=== PATIENT | female | born 1980 | race Caucasian/White ===

== ENCOUNTER 2017-06-03 10:49 | Emergency (ER) | payer MEDICAID | END 2017-06-03 12:57 | disposition home or self-care (01) | LOC: D.ER 10:49 | DX: M54.5 Low back pain (principal); S39.012A Strain of muscle, fascia and tendon of lower back, initial encounter; X58.XXXA Exposure to other specified factors, initial encounter; Y93.89 Activity, other specified; Y92.019 Unspecified place in single-family (private) house as the place of occurrence of the external cause; M62.838 Other muscle spasm ==

== ENCOUNTER 2017-07-13 14:04 | Emergency (ER) | payer MEDICAID ==
[2017-07-13 15:59] LABS: BASOPHILS 0.2 % (0-2); EOSINOPHILS 1.9 % (0-7); HEMATOCRIT 46.6 % (36.0-48.0); HEMOGLOBIN 15.8 g/dL (12-16); IMMATURE GRANULOCYTES 0.3 % (0-5); LYMPHOCYTES 29.4 % (15-50); MCH 31.4 pg (26.0-34.0); MCHC 33.9 g/dL (31.0-37.0); MCV 92.6 fL (80.0-100.0); MEAN PLATELET VOLUME 10.1 fL (7.4-10.4); MONOCYTES 4.1 % (2-11); NEUTROPHILS 64.1 % (40-80); PLATELET COUNT 350 10x3/uL (130-400); RBC 5.03 10x6/uL (4.00-5.40); RDW 12.1 % (11.5-14.5); WBC 9.8 10x3/uL (4.8-10.8)
[2017-07-13 16:04] LABS: APPEARANCE CLEAR (CLEAR); BILIRUBIN NEGATIVE (NEGATIVE); COLOR YELLOW (YELLOW); GLUCOSE NEGATIVE (NEGATIVE); KETONE NEGATIVE (NEGATIVE); NITRITE NEGATIVE (NEGATIVE); PROTEIN NEGATIVE (NEGATIVE); UROBILINOGEN NORMAL (NORMAL)
[2017-07-13 16:22] LABS: ALBUMIN 4.5 g/dL (3.4-5.0); ALKALINE PHOSPHATASE 100 U/L (46-116); ALT (SGPT) 35 U/L (10-68); CALC OSMOLALITY 279 mosm/kg (275-300); CALCIUM 9.1 mg/dL (8.5-10.1); CARBON DIOXIDE 27.1 mmol/L (21.0-32.0); CHLORIDE - SERUM 102 mmol/L (98-107); CREATININE - SERUM 0.7 mg/dL (0.6-1.3); GLUCOSE 99 mg/dL (74-106); POTASSIUM - SERUM 3.4 mmol/L (3.5-5.1); PROTEIN - SERUM 8.6 g/dL (6.4-8.2); SODIUM 140 mmol/L (136-145); UREA NITROGEN 14 mg/dL (7-18); eGFR NON AFRICAN AMERICAN > 90 mL/min (90-120)
[2017-07-13 16:23] LABS: C-REACTIVE PROTEIN 0.2 mg/dL (0.0-0.9); CREATINE KINASE 64 UL (21-215); MAGNESIUM - SERUM 2.4 mg/dL (1.8-2.4)
== END 2017-07-13 17:28 | disposition home or self-care (01) ==
LOC: D.ER 14:04
PROVIDERS: Family Medicine
DX: R42 Dizziness and giddiness (principal); R53.1 Weakness; E87.6 Hypokalemia; M54.9 Dorsalgia, unspecified

== ENCOUNTER 2017-09-21 08:06 | Emergency (ER) | payer MEDICAID ==
[2017-09-21 08:41] LABS: HCG URINE NEGATIVE (NEGATIVE)
[2017-09-21 08:44] LABS: APPEARANCE CLEAR (CLEAR); BILIRUBIN NEGATIVE (NEGATIVE); COLOR YELLOW (YELLOW); GLUCOSE NEGATIVE (NEGATIVE); KETONE NEGATIVE (NEGATIVE); NITRITE NEGATIVE (NEGATIVE); PROTEIN NEGATIVE (NEGATIVE); UROBILINOGEN NORMAL (NORMAL)
[2017-09-21 08:46] LABS: BASOPHILS 0.3 % (0-2); EOSINOPHILS 3.1 % (0-7); HEMATOCRIT 43.4 % (36.0-48.0); IMMATURE GRANULOCYTES 0.2 % (0-5); LYMPHOCYTES 20.4 % (15-50); MCH 31.4 pg (26.0-34.0); MCHC 34.6 g/dL (31.0-37.0); MEAN PLATELET VOLUME 9.6 fL (7.4-10.4); MONOCYTES 2.8 % (2-11); NEUTROPHILS 73.2 % (40-80); PLATELET COUNT 338 10x3/uL (130-400); RBC 4.77 10x6/uL (4.00-5.40); WBC 9.2 10x3/uL (4.8-10.8)
[2017-09-21 08:59] LABS: ALKALINE PHOSPHATASE 81 U/L (46-116); ALT (SGPT) 34 U/L (10-68); AMYLASE - SERUM 34 U/L (25-115); BILIRUBIN - TOTAL 0.36 mg/dL (0.2-1.3); CALC OSMOLALITY 279 mosm/kg (275-300); CALCIUM 8.9 mg/dL (8.5-10.1); CARBON DIOXIDE 23.4 mmol/L (21.0-32.0); CHLORIDE - SERUM 103 mmol/L (98-107); CREATININE - SERUM 0.7 mg/dL (0.6-1.3); GLUCOSE 125 mg/dL (74-106); LIPASE 78 U/L (73-393); POTASSIUM - SERUM 3.6 mmol/L (3.5-5.1); PROTEIN - SERUM 8.1 g/dL (6.4-8.2); SODIUM 140 mmol/L (136-145); UREA NITROGEN 12 mg/dL (7-18); eGFR NON AFRICAN AMERICAN > 90 mL/min (90-120)
== END 2017-09-21 10:25 | disposition home or self-care (01) ==
LOC: D.ER 08:06
PROVIDERS: Family Medicine
DX: R10.9 Unspecified abdominal pain (principal); G35 Multiple sclerosis

== ENCOUNTER 2018-06-24 11:17 | Emergency (ER) | payer MEDICAID ==
[~2018-06-24] VITALS: Ht 160 cm; Wt 63.6 kg
[2018-06-24 11:21] VITALS: Ht 160 cm; Wt 63.6 kg
[2018-06-24 15:02] LABS: BASOPHILS 0.2 % (0-2); EOSINOPHILS 4.1 % (0-7); HEMATOCRIT 40.2 % (36.0-48.0); HEMOGLOBIN 13.3 g/dL (12-16); IMMATURE GRANULOCYTES 0.2 % (0-5); LYMPHOCYTES 16.4 % (15-50); MCH 30.4 pg (26.0-34.0); MCHC 33.1 g/dL (31.0-37.0); MEAN PLATELET VOLUME 9.8 fL (7.4-10.4); MONOCYTES 7.5 % (2-11); NEUTROPHILS 71.6 % (40-80); PLATELET COUNT 339 10x3/uL (130-400); RBC 4.37 10x6/uL (4.00-5.40); RDW 12.2 % (11.5-14.5)
[2018-06-24 15:15] LABS: ALBUMIN 3.2 g/dL (3.4-5.0); ALKALINE PHOSPHATASE 99 U/L (46-116); ALT (SGPT) 26 U/L (10-68); BILIRUBIN - TOTAL 0.34 mg/dL (0.2-1.3); C-REACTIVE PROTEIN 7.1 mg/dL (0.0-0.9); CALC OSMOLALITY 279 mosm/kg (275-300); CALCIUM 8.6 mg/dL (8.5-10.1); CARBON DIOXIDE 30.4 mmol/L (21.0-32.0); CHLORIDE - SERUM 99 mmol/L (98-107); CREATININE - SERUM 0.9 mg/dL (0.6-1.3); GLUCOSE 109 mg/dL (74-106); POTASSIUM - SERUM 3.8 mmol/L (3.5-5.1); PROTEIN - SERUM 7.5 g/dL (6.4-8.2); SODIUM 139 mmol/L (136-145); UREA NITROGEN 14 mg/dL (7-18); eGFR NON AFRICAN AMERICAN 75 mL/min (90-120)
[2018-06-24] MEDS ORDERED: CLEOCIN HCL300 MG PO (15:25)
[2018-06-24] MEDS ORDERED: ULTRAM50 MG PO (15:25)
[2018-06-24] MEDS ORDERED: KEFLEX500 MG PO (15:25)
[2018-06-24 16:17] VITALS: BP 116/66
== END 2018-06-24 16:18 | disposition home or self-care (01) ==
LOC: D.ER 11:17
PROVIDERS: Family Medicine
DX: L03.317 Cellulitis of buttock (principal)

== ENCOUNTER 2018-12-14 15:46 | Emergency (ER) | payer MEDICAID ==
[~2018-12-14] VITALS: Ht 160 cm; Wt 59.1 kg
[~2018-12-14 15:46] MED LIST: CLEOCIN HCL300 MG PO; KEFLEX500 MG PO; ULTRAM50 MG PO
[2018-12-14 15:50] VITALS: Ht 160 cm; Wt 59.1 kg
[2018-12-14] MEDS ORDERED: BACTRIM 400-801 TAB PO (16:09)
[2018-12-14] MEDS ORDERED: VOLTAREN75 MG PO (16:09)
[2018-12-14 16:44] VITALS: BP 107/70
== END 2018-12-14 16:45 | disposition home or self-care (01) ==
LOC: D.ER 15:46
DX: L03.113 Cellulitis of right upper limb (principal)

== ENCOUNTER 2019-01-09 10:24 | Emergency (ER) | payer MEDICAID ==
[~2019-01-09] VITALS: Ht 160 cm; Wt 59.1 kg
[~2019-01-09 10:24] MED LIST changes: +BACTRIM 400-801 TAB PO; +VOLTAREN75 MG PO
[2019-01-09 10:29] VITALS: Ht 160 cm; Wt 59.1 kg
[2019-01-09] MEDS ORDERED: DICLOFENAC SODI50 MG PO (11:27)
[2019-01-09 11:54] LABS: UDS - AMPHET POSITIVE QUAL (NEGATIVE); UDS - BARB NEGATIVE QUAL (NEGATIVE); UDS - BENZO NEGATIVE QUAL (NEGATIVE); UDS - COCAINE NEGATIVE QUAL (NEGATIVE); UDS - OPIATE POSITIVE QUAL (NEGATIVE); UDS - PCP NEGATIVE QUAL (NEGATIVE); UDS - THC POSITIVE QUAL (NEGATIVE)
[2019-01-09 11:59] LABS: BASOPHILS 0.1 % (0-2); EOSINOPHILS 2.3 % (0-7); HEMOGLOBIN 13.8 g/dL (12-16); IMMATURE GRANULOCYTES 0.3 % (0-5); LYMPHOCYTES 12.3 % (15-50); MCH 30.3 pg (26.0-34.0); MCHC 33.7 g/dL (31.0-37.0); MCV 89.9 fL (80.0-100.0); MEAN PLATELET VOLUME 9.4 fL (7.4-10.4); MONOCYTES 3.5 % (2-11); NEUTROPHILS 81.5 % (40-80); PLATELET COUNT 319 10x3/uL (130-400); RBC 4.56 10x6/uL (4.00-5.40); RDW 13.4 % (11.5-14.5); WBC 13.9 10x3/uL (4.8-10.8)
[2019-01-09 12:04] LABS: HCG URINE NEGATIVE (NEGATIVE)
[2019-01-09 12:12] LABS: APPEARANCE HAZY (CLEAR); BACTERIA FEW /hpf (NONE SEEN); BILIRUBIN NEGATIVE (NEGATIVE); COLOR YELLOW (YELLOW); EPITHELIAL CELLS OCC /hpf (0-5); GLUCOSE NEGATIVE (NEGATIVE); KETONE NEGATIVE (NEGATIVE); MUCUS <1+ /lpf (NONE SEEN); NITRITE NEGATIVE (NEGATIVE); PROTEIN NEGATIVE (NEGATIVE); SPECIFIC GRAVITY 1.015 (1.005-1.020); UROBILINOGEN NORMAL (NORMAL)
[2019-01-09] MEDS ORDERED: MACROBID100 MG PO (12:17)
[2019-01-09 12:25] LABS: ALBUMIN 3.7 g/dL (3.4-5.0); ALKALINE PHOSPHATASE 107 U/L (46-116); ALT (SGPT) 31 U/L (10-68); BILIRUBIN - TOTAL 0.17 mg/dL (0.2-1.3); CALC OSMOLALITY 280 mosm/kg (275-300); CALCIUM 9.1 mg/dL (8.5-10.1); CARBON DIOXIDE 27.6 mmol/L (21.0-32.0); CHLORIDE - SERUM 102 mmol/L (98-107); CREATININE - SERUM 0.8 mg/dL (0.6-1.3); GLUCOSE 119 mg/dL (74-106); POTASSIUM - SERUM 3.6 mmol/L (3.5-5.1); PROTEIN - SERUM 8.2 g/dL (6.4-8.2); SODIUM 140 mmol/L (136-145); UREA NITROGEN 15 mg/dL (7-18); eGFR NON AFRICAN AMERICAN 85 mL/min (90-120)
[2019-01-09 12:44] VITALS: BP 132/89
== END 2019-01-09 12:46 | disposition home or self-care (01) ==
LOC: D.ER 10:24
PROVIDERS: Family Medicine
DX: R55 Syncope and collapse (principal); S16.1XXA Strain of muscle, fascia and tendon at neck level, initial encounter; W18.30XA Fall on same level, unspecified, initial encounter; Y93.89 Activity, other specified; Y92.89 Other specified places as the place of occurrence of the external cause; S39.012A Strain of muscle, fascia and tendon of lower back, initial encounter; N39.0 Urinary tract infection, site not specified